=== PATIENT | female | born 1995 | race Caucasian/White ===

== ENCOUNTER → 2021-02-11 15:05 | Outpatient (CLI) | payer MEDICAID, SELFPAY ==
--- NOTE | ~2021-02-11 | XR_ITS ---
EXAMINATION: XR sternum min 2V INDICATION: Sternal and Central chest pain TECHNIQUE: Two views of the sternum are obtained. COMPARISON: None available FINDINGS: Bone alignment is normal. No fracture is identified. No soft tissue abnormality is identifi ed although sensitivity of radiographs is low. IMPRESSION: 1. No acute osseous abnormality. Reviewed, dictated and finalized at location A.
== END ==
PROVIDERS: PCP Physician Assistant; Visit Provider Physician Assistant
DX: M54.2 Cervicalgia (principal); R07.2 Precordial pain
CPT/HCPCS: 71120

== ENCOUNTER 2021-08-12 15:37 | Outpatient (CLI) | payer BC, SELFPAY ==
--- NOTE | ~2021-08-12 | XR_ITS ---
EXAMINATION: XR thoracic spine 3V, XR lumbar spine 2-3V DATE: 08/12/2021 16:17 (accession [id number]), 08/12/2021 16:18 (accession [id number]) INDICATION: Thoracic and lumbar back pain radiating down the left leg TECHNIQUE: 1. One AP, lateral and lateral swimmer's views of the thoracic spine were obtained. 2. AP, lateral and coned-down lateral lumbosacral views of the lumbar spine were obtained. COMPARISON: None. FINDINGS: Normal alignment of the thoracic and lumbar spine. Vertebral body and disc heights are normal. No jacque reciable thoracic or lumbar facet osteoarthritis. Sacrum and bilateral sacral iliac joints are normal . Visualized portions of the lungs are clear with no pleural effusion or pneumothorax. Heart size is normal. Normal bowel gas pattern. IMPRESSION: 1. Normal radiographs of the thoracic and lumbar spine. Reviewed, dictated and finalized at location A. NEYMAN WELDER IMPRESSION: 1. Normal radiographs of the thoracic and lumbar spine.
== END 2021-08-12 15:38 | disposition home or self-care (01) ==
LOC: ANHIMG 15:44
PROVIDERS: PCP Physician Assistant; Visit Provider Physician Assistant
DX: M54.6 Pain in thoracic spine (principal); M54.50 Low back pain, unspecified; R20.2 Paresthesia of skin
CPT/HCPCS: 72072; 72100

== ENCOUNTER 2021-08-27 10:34 | Outpatient (CLI) | payer BC, SELFPAY ==
--- NOTE | ~2021-08-27 | MR_ITS ---
EXAMINATION: MR brain/brain stem wo/w con DATE: 08/27/2021 12:23 INDICATION: Paresthesias of skin. Forehead numbness. TECHNIQUE: Magnetic resonance imaging (MRI) of the brain and brainstem was performed without and with 15 mL MultiHance intravenous contrast. Sequences included sagittal and axial T1-weighted FSE, axial diffusion-weighted FS EPI, axial T2*-weighted GRE, axial T2-weighted FLAIR Propeller, axial T2-weight ed Propeller, small aidpa-bi-lyqv coronal FIESTA, small yagsz-jj-vupq coronal T1-weighted FSE, and sm all treek-ig-swuj axial T1-weighted SPGR. Postcontrast sequences included axial T1-weighted FSE, smal l mscvv-tm-ugmt coronal T1-weighted FSE, and small eeoyj-lj-ilas axial T1-weighted SPGR. Apparent dif fusion coefficient (ADC) maps were created. COMPARISON: None. FINDINGS: There are 2 punctate foci of increased T2-weighted signal intensity in the cerebral white m atter, which is normal for the patient's age. There is no intracranial hemorrhage, acute infarction, or abnormal intracranial mass lesion. The ventricles are normal in size. The paranasal sinuses are cl ear. The orbits are normal. The internal auditory canals and inner and middle ears are normal. The ma stoid air cells are normal. IMPRESSION: 1. Normal brain. Reviewed, dictated and finalized at location A. L SPECIALIST IMPRESSION: 1. Normal brain.
[2021-08-27 11:06] LABS: Estimated Glomerular Filt Rate > 60
== END 2021-08-27 10:35 | disposition home or self-care (01) ==
LOC: ANHIMG 10:35
PROVIDERS: PCP Physician Assistant; Visit Provider Physician Assistant
DX: R20.2 Paresthesia of skin (principal)
CPT/HCPCS: 70553; A9577

== ENCOUNTER 2022-10-13 18:44 | Emergency (ER) | payer BC, SELFPAY ==
[2022-10-13 18:52] VITALS: BP 125/93; PULSE 114; RESP 20; TEMP 37.2; O2SAT 98
--- NOTE | 2022-10-13 19:55 | ED.GENADULT ---
HPI - General Adult General Chief complaint: Upper Respiratory Infection Stated complaint: injury Source: patient and family Mode of arrival: ambulatory Limitations: no limitations History of Present Illness HPI narrative: Patient presents for evaluation of multiple complaints. Her primary concern is is discoloration noted to her feet. She states she was standing in the kitchen on a tile floor this evening around 1800 when she noted redness to both of her feet. She also noted some white and purple coloration. She has had these symptom in the past. She states her feet feel flushed. Her brother has Raynaud's. Denies loss of motor function. Denies paresthesias. The appearance of her feet cause and increasing anxiety. She now feels like her heart is beating fast. She denies any chest pain or shortness of breath. She has underlying anxiety and states she gets sensation of racing heart in the past with anxiety. She stopped taking paxil as she did not like the way it made her feel. She was on the medication for at least 1.5 years. She does not smoke. She is also concerned about dry mouth, nasal dryness and white plaque to her tongue. Mother had thrush in the past. She does not use an inhaler. No recent sick contacts to her knowledge. No additional complaints or concerns. Related Data Home Medications Medication Instructions Recorded Confirmed cyclobenzaprine 10 mg tablet 10 mg PO DAILY 10/13/22 10/13/22 Allergies Allergy/AdvReac Type Severity Reaction Status Date / Time amoxicillin Allergy Unknown rash Verified 10/13/22 19:46 venlafaxine Allergy Unknown rash Verified 10/13/22 19:46 Review of Systems Review of Systems: CONSTITUTIONAL: Denies fever, chills, or sweats. EYES: Denies visual changes, redness, or discharge. ENT: Reports dry mouth, nasal dryness, white plaque to her tongue and sore throat. CARDIOVASCULAR: Reports sensation of racing heart. Denies chest pain or edema. RESPIRATORY: Denies cough or dyspnea. GASTROINTESTINAL: Denies abdominal pain, nausea, vomiting, or diarrhea. GENITOURINARY: Denies dysuria or hematuria. SKIN: Reports white, red, purple coloration to her feet bilaterally MUSCULOSKELETAL: Denies back pain, joint pain, or myalgia. NEUROLOGIC: Denies headache, numbness, dizziness, or weakness. PSYCHIATRIC: Reports anxiety. Denies depression PMFSH Past Medical History Medical History Allergies Anxiety Depression Knee tumor Migraine Surgical History Surgical History (Updated 08/17/19 @ 09:07 by Isaiah Fragoso [facility]) H/O hand surgery Family History Family History Other Acute arthritis Carcinoma of colon Disorder of thyroid Heart burn Hypertension Malignant neoplasm of prostate Social History Social History Smoking status: Never smoker Alcohol intake: current Substance use: never Gender identity (if verbalized by the patient): Female Spiritual care concerns: No Exam Narrative: GENERAL: Well-appearing, well-nourished, and in no acute distress. HEAD: Normocephalic, atraumatic. EYES: PERRLA and EOMI. ENT: Nares clear, no rhinorrhea or epistaxis. Mucous membranes moist. mild posterior pharyngeal erythema. There is a white plaque noted the tongue. Bilateral TMs pearly peterson nonbulging NECK: Supple. No adenopathy or masses. No carotid bruits or JVD CHEST: Clear to auscultation. No respiratory distress. No wheezes rales or rhonchi HEART: Regular rate and rhythm. No murmur heard. Normal peripheral pulses. ABDOMEN: Soft, nontender, nondistended, normal active bowel sounds. EXTREMITIES: Normal range of motion. 2+ left pedal pulse. 1+ right pedal pulse. Sensation intact. Cap refill < 3 sec all digits of bilateral feet SKIN: Distal aspect of bilateral feet are erythematous
== END 2022-10-13 19:56 | disposition home or self-care (01) ==
PROVIDERS: Emergency Provider Nurse Practitioner; PCP Physician Assistant
DX: J02.0 Streptococcal pharyngitis (principal); I73.00 Raynaud's syndrome without gangrene
CPT/HCPCS: 87880; 99213; G0463

== ENCOUNTER 2022-10-25 15:59 | Emergency (ER) | payer BC, SELFPAY ==
[2022-10-25 16:10] VITALS: BP 165/88; PULSE 125; RESP 16; TEMP 37.3; O2SAT 100
--- NOTE | 2022-10-25 16:19 | ED.URI ---
HPI - URI/Sore Throat General Chief Complaint: Upper Respiratory Infection Stated Complaint: DRY THROAT/sore throat Time Seen by Provider: 10/25/22 16:09 Source: patient Mode of arrival: ambulatory Limitations: no limitations History of Present Illness HPI Narrative: Patient presents today with a dry throat x3 weeks with a mild sore throat. She currently rates her pain 6/10 and has tried no gkxg-xac-xhfhvei treatment prior to arrival. Patient was diagnosed with strep throat at [facility] on 10/13/2022 for which she was prescribed azithromycin. States she was recheck for strep throat 2 days ago at her PCPs office during a nurse visit, but was not evaluated by her provider. She does not have a follow-up visit scheduled. Related Data Allergies Allergy/AdvReac Type Severity Reaction Status Date / Time amoxicillin Allergy Unknown rash Verified 10/25/22 16:10 venlafaxine Allergy Unknown rash Verified 10/25/22 16:10 Review of Systems Review of Systems: CONSTITUTIONAL: Denies body aches, fever, chills, or sweats. EYES: Denies visual changes, redness, or discharge. ENT: Denies rhinorrhea, congestion, or otalgia.+ sore throat, throat dryness CARDIOVASCULAR: Denies chest pain, palpitations, or edema. RESPIRATORY: Denies cough or dyspnea. GASTROINTESTINAL: Denies abdominal pain, nausea, vomiting, or diarrhea. GENITOURINARY: Denies dysuria or hematuria. SKIN: Denies rash, itching, or wounds. MUSCULOSKELETAL: Denies back pain, joint pain, or myalgia. NEUROLOGIC: Denies headache, numbness, tingling, or weakness. PSYCH: Denies depression or anxiety. [facility] Past Medical History Medical History Allergies Anxiety Depression Knee tumor Migraine Surgical History Surgical History H/O hand surgery Family History Family History Other Acute arthritis Carcinoma of colon Disorder of thyroid Heart burn Hypertension Malignant neoplasm of prostate Social History Social History Smoking status: Never smoker Alcohol intake: current Substance use: never Living arrangements: with family Gender identity (if verbalized by the patient): Female Spiritual care concerns: No Comments At time of signature, I have reviewed and agree with nursing past medical, surgical, social and family history unless otherwise noted. Please see nursing chart for further information. There is no relevant family history pertinent to the presenting complaint Exam Narrative: GENERAL: Well-appearing, well-nourished, and in no acute distress. HEAD: Normocephalic, atraumatic. EYES: EOMI. No redness or drainage. Conjunctivae normal. ENT: Mucous membranes pink and moist. Nares clear. No rhinorrhea. TMs normal bilaterally. Throat erythematous without edema or exudate. Uvula midline. NECK: Normal AROM. Supple. No lymphadenopathy. CHEST: No respiratory distress. Clear to auscultation. HEART: Regular rate and rhythm. No murmur appreciated. Normal peripheral pulses. EXTREMITIES: Normal range of motion. No edema. SKIN: Warm, dry, no rash. Capillary refill normal. Normal skin turgor. NEURO: No focal deficits. Alert and oriented x3. Gait steady. PSYCH: Normal affect. No signs of depression or anxiety. Course Course Level of Care: Express Care Visit Vital Signs Vital signs: Vital Signs Temperature 99.1 F 10/25/22 16:10 Pulse Rate 125 H 10/25/22 16:10 Respiratory Rate 16 10/25/22 16:10 Blood Pressure 165/88 H 10/25/22 16:10 Pulse Oximetry 100 10/25/22 16:10 Temperature 99.1 F 10/25/22 16:10 Pulse Rate 125 H 10/25/22 16:10 Respiratory Rate 16 10/25/22 16:10 Blood Pressure 165/88 H 10/25/22 16:10 Pulse Oximetry 100 10/25/22 16:10 Reviewed. Pt has been instructed to f
[2022-10-25 16:42] VITALS: BP 129/78; PULSE 97; RESP 16; O2SAT 99
== END 2022-10-25 16:42 | disposition home or self-care (01) ==
PROVIDERS: Emergency Provider Nurse Practitioner; PCP Physician Assistant
DX: J02.9 Acute pharyngitis, unspecified (principal)
CPT/HCPCS: 87081; 87880; 99213; G0463

== ENCOUNTER 2023-08-23 13:06 | Emergency (ER) | payer BC, SELFPAY ==
[2023-08-23 13:20] VITALS: BP 129/76; PULSE 83; RESP 16; TEMP 36.8; O2SAT 100
--- NOTE | 2023-08-23 14:14 | ED.URI ---
HPI - URI/Sore Throat General Chief Complaint: Upper Respiratory Infection Stated Complaint: Sore Throat Time Seen by Provider: 08/23/23 14:10 Source: RN notes reviewed and old records reviewed Mode of arrival: ambulatory Limitations: no limitations History of Present Illness HPI Narrative: 28 year old female presents to [facility] with complaints of sore throat and some low grade feves for the past 3 days. Patient reports positive exposure to strep,fiance diagnosed recently with strep. Patient reports painful swallowing and some burning to throat. Patiet states that she has been taking an antihistamine and also some Tylenol. She denies any ear pain, headache, nausea vomiting or diarrhea. MD elicited complaint: cough and sore throat Pertinent past history: seasonal allergies and other (positive exposure to strep) Onset (ago): day(s) (day 3 of symptoms) Pain scale (0-10): 3 Able to tolerate fluids by mouth: Yes Exacerbating factors: swallowing Treatments prior to arrival: acetaminophen and other (antihistamine ) Related Data Home Medications Medication Instructions Recorded Confirmed norethindrone acetate 1 mg-ethinyl 1 tablet PO DAILY 03/03/23 08/23/23 estradiol 20 mcg tablet paroxetine HCl 10 mg tablet 10 mg PO DAILY 03/03/23 08/23/23 Allergies Allergy/AdvReac Type Severity Reaction Status Date / Time amoxicillin Allergy Unknown rash Verified 08/23/23 13:27 venlafaxine Allergy Unknown rash Verified 08/23/23 13:27 Review of Systems Review of Systems: CONSTITUTIONAL: Reports malaise, chills, sweats, low grade fever. EYES: Denies visual changes, redness, or discharge. ENT: Reports rhinorrhea, congestion, no sinus pain, no otalgia and positive sore throat. CARDIOVASCULAR: Denies chest pain, palpitations, or edema. RESPIRATORY: Reports no cough.? Denies dyspnea. GASTROINTESTINAL: Denies abdominal pain, nausea, vomiting, diarrhea SKIN: Denies rash or itching. MUSCULOSKELETAL: Denies myalgia. NEUROLOGIC: Denies headache. All systems reviewed & are unremarkable except as noted in HPI and below PMFSH Past Medical History Medical History Allergies Anxiety Depression Knee tumor Migraine Surgical History Surgical History H/O hand surgery benign tumor removed right hand Family History Family History Other Acute arthritis Carcinoma of colon Disorder of thyroid Heart burn Hypertension Malignant neoplasm of prostate Social History Social History Smoking status: Never smoker Alcohol intake: current Substance use: never Living arrangements: with family Gender identity (if verbalized by the patient): Female Spiritual care concerns: No Comments At time of signature, agree with nursing past medical, surgical, social and family history. There is no relevant family history pertinent to the presenting complaint Exam Narrative: GENERAL: Well-appearing, well-nourished, and in no acute distress. HEAD: Normocephalic EYES: PERRLA, conjunctivae clear ENT: Nares clear, turbinates edematous and erythematous, clear discharge. Mucous membranes moist. TM pearly peterson with dull light reflex bilaterally; no tragal tenderness. Oropharynx erythematous without lesions. Tonsils mildly enlarged and without exudate, no drooling, no hoarseness, no trismus, uvula midline.some post nasal drainage NECK: Supple. lymphadenopathy CHEST: Clear to auscultation, breath sounds equal. No wheezing, rhonchi, rales, or stridor. No respiratory distress, speaks in full sentences.no cough noted SAO2 100% on room air HEART: Regular rate and rhythm. No murmur heard. SKIN: Warm, dry, no rash. NEURO: Alert and oriented x3. PSYCH: Normal mood and affect Course Course Emerge
== END 2023-08-23 14:24 | disposition home or self-care (01) ==
PROVIDERS: Emergency Provider Registered Nurse; PCP Physician Assistant
DX: J02.9 Acute pharyngitis, unspecified (principal); Z79.899 Other long term (current) drug therapy
CPT/HCPCS: 87081; 87880; 99213; G0463

== ENCOUNTER 2024-01-18 12:49 | Emergency (ER) | payer BC, SELFPAY ==
[2024-01-18 13:05] VITALS: BP 139/74; PULSE 98; RESP 16; TEMP 37.2; O2SAT 100
--- NOTE | 2024-01-18 13:49 | ED.URI ---
HPI - URI/Sore Throat General Chief Complaint: Upper Respiratory Infection Stated Complaint: Sore Throat Time Seen by Provider: 01/18/24 13:19 Source: patient, RN notes reviewed and old records reviewed Mode of arrival: ambulatory Limitations: no limitations History of Present Illness HPI Narrative: 28-year-old female to Express Care for complaint of sore throat for 1 week. Patient states her fiance recently tested positive for strep. Patient denies ear pain, fever, headache, GI complaints. Patient able to tolerate fluids by mouth. Patient denies pertinent medical history. Patient in no acute distress Related Data Home Medications Medication Instructions Recorded Confirmed norethindrone acetate 1 mg-ethinyl 1 tablet PO DAILY 03/03/23 01/18/24 estradiol 20 mcg tablet paroxetine HCl 10 mg tablet 10 mg PO DAILY 03/03/23 01/18/24 Allergies Allergy/AdvReac Type Severity Reaction Status Date / Time amoxicillin Allergy Unknown rash Verified 01/18/24 13:08 venlafaxine Allergy Unknown rash Verified 01/18/24 13:08 Review of Systems Review of Systems: All systems reviewed & are unremarkable except as noted in HPI and below Constitutional: Constitutional: Reports as per HPI and Denies fever(s) Eyes: Eyes: Reports no additional eye complaints ENT: Reports as per HPI and Reports sore throat Cardiovascular: Cardiovascular: Reports no additional cardiovascular complaints, Denies chest pain and Denies dyspnea Respiratory: Respiratory: Reports no additional respiratory complaints, Denies cough and Denies dyspnea Gastrointestinal: Gastrointestinal: Reports as per HPI, Denies diarrhea, Denies nausea and Denies vomiting Musculoskeletal: Musculoskeletal: Reports no additional musculoskeletal complaints Neurologic: Reports system reviewed and no additional complaints, except as documented Psychiatric: Psychiatric: Reports no additional psychiatric complaints [facility] Past Medical History Medical History Allergies Anxiety Depression Knee tumor Migraine Surgical History Surgical History H/O hand surgery benign tumor removed right hand Family History Family History Other Acute arthritis Carcinoma of colon Disorder of thyroid Heart burn Hypertension Malignant neoplasm of prostate Social History Social History Smoking status: Never smoker Alcohol intake: current Substance use: never Living arrangements: with family Gender identity (if verbalized by the patient): Female Spiritual care concerns: No Comments At the time of my signature, I reviewed and agree with the nursing past medical, surgical, social, and family history. There is no relevant family history pertinent to the patient complaint. Exam Const: General: cooperative, healthy appearing, comfortable, no acute distress, alert and well nourished Nutritional Appearance: well nourished Orientation/consciousness: patient oriented x3 Limitations: no limitations HENMT: Head: normal to inspection Ears: external ears normal Face/Nose/Sinus: Normal external nose present, Normal nares present, normal facial exam, No erythema and No edema Face and sinus: normal facial exam, no erythema and no edema Mouth: Yes Normal oral and palatal mucosa present Throat: uvula midline, posterior oropharynx abnormal erythema and exudates, postnasal drainage, uvula not displaced and no uvular edema Eyes: General: appearance normal, both eyes and all related structures Neck: Neck: normal visual inspection, full ROM and no meningeal signs Lymphatic: no lymphadenopathy noted and no lymphedema noted Chest: Chest palpation & inspection: normal inspection of the chest Resp: Effort & Inspection: normal respiratory effort a
== END 2024-01-18 14:00 | disposition home or self-care (01) ==
PROVIDERS: Emergency Provider Nurse Practitioner Family; PCP Physician Assistant
DX: J02.0 Streptococcal pharyngitis (principal); F41.9 Anxiety disorder, unspecified; F32.A Depression, unspecified
CPT/HCPCS: 87081; 87880; 99213; G0463